=== PATIENT | male | born 1985 | race American Indian/Alaskan Native ===

== ENCOUNTER 2016-03-10 08:02 | Inpatient (IN) | payer SELFPAY ==
[2016-03-10] MEDS ORDERED: ATIVAN ONE (08:21)
[2016-03-10] MEDS ORDERED: KEPPRA 1,000 MG/NS 0.75% 100ML 100 ML IV ONE ×2 (08:24→08:35)
[2016-03-10] MEDS ORDERED: NACL 0.9% 1000 ML 1,000 ML IV ONE (08:33)
[2016-03-10] MEDS ORDERED: ATIVAN IV ONE ×2 (08:33→08:46)
[2016-03-10 09:16] LABS: Urine Drugs of Abuse Note Disclamer
[2016-03-10 09:25] LABS: Basophils % (Auto) 0.3 % (0.0-1.8); Mean Corpuscular HGB Conc 31 % (32-34); Mean Corpuscular Hemoglobin 27 pg (28-32); Mean Corpuscular Volume 87 fl (84-94); Platelet Count 195 K/mm3 (140-440); Red Blood Count 5.49 M/mm3 (3.65-5.03); White Blood Count 13.6 K/mm3 (4.5-11.0)
[2016-03-10 09:31] LABS: Hematocrit 47.8 % (35.5-45.6); Hemoglobin 14.8 gm/dl (11.8-15.2)
--- NOTE | 2016-03-10 09:38 | Cat Scan Report ---
CT HEAD WITHOUT CONTRAST: HISTORY: Seizure. Serial contiguous axial images were obtained through the cranium. Intravenous contrast material was not administered. The ventricles are normal in size and appearance. There is no mass effect or midline shift. No areas of abnormally increased or decreased attenuation are seen. No mass lesion is seen. The mastoid air cells and visualized portions of the sinuses are normal. IMPRESSION: Cranial CT scan within normal limits. No significant change since 10/18/15.
[2016-03-10 09:39] LABS: Bacteria,Urine 1+ /HPF (Negative); Bilirubin,Urine NEG (Negative); Blood,Urine SM (Negative); Ketones,Urine TR mg/dL (Negative); Leukocyte Esterase,Urine NEG (Negative); Mucus,Urine 1+ /HPF; Nitrite,Urine NEG (Negative); Urobilinogen,Urine < 2.0 mg/dL (<2.0); WBC,Urine < 1.0 /HPF (0.0-6.0)
[2016-03-10 09:46] LABS: Alanine Aminotransferase 23 units/L (7-56); Albumin 4.2 g/dL (3.9-5); Albumin/Globulin Ratio 1.1 %; Alkaline Phosphatase 87 units/L (35-129); Anion Gap 24 mmol/L; BUN/Creatinine Ratio 10.66; Bilirubin,Total 0.5 mg/dL (0.1-1.2); Blood Urea Nitrogen 16 mg/dL (9-20); Calcium 9.2 mg/dL (8.4-10.2); Carbon Dioxide 18 mmol/L (22-30); Glucose 105 mg/dL (75-100); Potassium 4.2 mmol/L (3.6-5.0); Sodium 140 mmol/L (137-145); Total Protein 8.1 g/dL (6.3-8.2)
[2016-03-10 09:59] LABS: Bilirubin,Direct < 0.2 mg/dL (0-0.2); Bilirubin,Indirect 0.3 mg/dL
--- NOTE | 2016-03-10 10:46 | XRay Report ---
AP CHEST: HISTORY: Difficulty in breathing There is poor inspiration AP view of the chest demonstrates a normal mediastinal and cardiac contour with clear lungs and normal bony and soft tissue structures. IMPRESSION: Negative expiratory AP chest.
--- NOTE | 2016-03-10 12:33 | History and Physical Report ---
History of Present Illness Date of examination: 03/10/16 History of present illness: This is a 30-year-old man who was diagnosed which seizure in September 2015, he was started on Keppra after is second seizure. He has not had workup for his seizure activity. Mom states that around 5:00 this morning she heard a loud thud in the house, she went to see what was wrong, she found the patient on the floor seizing, generalize tonic-clonic lasting for less than 5 minutes. EMS was called, patient did not want come to the hospital. 10 minutes later he had another seizure similar to the first, he was brought to the emergency room for further evaluation. For the last 1 week the patient has been taking his Keppra once a day instead of twice a day Patient denies chest pain, palpitation, shortness of breath, cough, abdominal pain, hematochezia, dysuria, frequency, focal weakness, dysarthria, fever chills , polydipsia polyuria, hot or cold intolerance, easy bruisability, or rash or bleeding from mucosal membrane, rhinorrhea, epistaxis, earache, tinnitus, blurry vision, eye discharge, anxiety, depression. Other review of systems negative PAST SURGICAL HISTORY: None SOCIAL HISTORY: Drinks alcohol, last drink was yesterday, he smokes 6 cigarettes a day, cocaine use FAMILY HISTORY: Hypertension Medications and Allergies Allergies Allergy/AdvReac Type Severity Reaction Status Date / Time No Known Allergies Allergy Unverified 07/13/15 14:23 Home Medications Medication Instructions Recorded Confirmed Last Taken Type levETIRAcetam [Keppra TAB] 500 mg PO BID 03/10/16 03/10/16 03/09/16 History Active Meds: Active Medications Levetiracetam (Keppra) 500 mg PO BID ROSI Exam - Physical Exam Narrative exam: Gen. appearance: Patient lying in bed, no apparent distress HEENT: Normocephalic, atraumatic, pupils equally round and reactive to light, extraocular movement intact, and no sclericterus,. No JVD or thyromegaly or nodule,neck supple, no carotid bruit ,mucous membranes moist, no exudate or erythema Heart: S1, S2, regular rate and rhythm Lungs: Clear to auscultation bilaterally, breathing comfortable Abdomen: Positive bowel sounds, nontender, nondistended, no organomegaly Extremity: No edema, cyanosis, clubbing Skin: No rash, nodules, warm, dry Neuro: Oriented 3, cranial nerves II-12 intact, speech is fluent, motor and sensory intact - Constitutional Vitals: Temp Pulse Resp BP Pulse Ox 98.2 F 106 H 24 163/91 99 03/10/16 08:35 03/10/16 08:35 03/10/16 08:39 03/10/16 08:35 03/10/16 08:39 Results - Labs CBC & Chem 7: 03/10/16 08:49 03/10/16 08:49 Labs: Abnormal lab results 03/10/16 03/10/16 03/10/16 Range/Units 08:42 08:49 08:49 WBC 13.6 H (4.5-11.0) K/mm3 RBC 5.49 H (3.65-5.03) M/mm3 Hct 47.8 H (35.5-45.6) % MCH 27 L (28-32) pg MCHC 31 L (32-34) % RDW 16.0 H (13.2-15.2) % Lymph % (Auto) 6.9 L (13.4-35.0) % Lymph # 0.9 L (1.2-5.4) K/mm3 [place] # 0.9 H (0.0-0.8) K/mm3 Seg Neutrophils % 86.0 H (40.0-70.0) % Seg Neutrophils # 11.7 H (1.8-7.7) K/mm3 Carbon Dioxide 18 L (22-30) mmol/L Glucose 105 H (75-100) mg/dL POC Glucose 110 H (70-105) Total Creatine Kinase (55-170) units/L Phenytoin (10.0-20.0) mg/L 03/10/16 03/10/16 Range/Units 08:49 08:49 WBC (4.5-11.0) K/mm3 RBC (3.65-5.03) M/mm3 Hct (35.5-45.6) % MCH (28-32) pg MCHC (32-34) % RDW (13.2-15.2) % Lymph % (Auto) (13.4-35.0) % Lymph # (1.2-5.4) K/mm3 [place] # (0.0-0.8) K/mm3 Seg Neutrophils % (40.0-70.0) % Seg Neutrophils # (1.8-7.7) K/mm3 Carbon Dioxide (22-30) mmol/L Glucose (75-100) mg/dL POC Glucose (70-105) Total Creatine Kinase 461 H (55-170) units/L Phenytoin 1.1 L (10.0-20.0) mg/L - Imaging and Cardiology Chest x-ray: report reviewed CT Scan - head: report reviewed Assessment and Plan Acute on chronic seizure Substance abuse Admits medicine Start IV Ativan as needed for seizure Restart Kejavierra, consult neurology Start DVT prophylaxis
--- NOTE | 2016-03-10 12:53 | Emergency Department Report ---
ED Seizure HPI - General Chief Complaint: Seizure Stated Complaint: SEIZURES Time Seen by Provider: 03/10/16 08:32 Source: EMS Mode of arrival: Stretcher Limitations: Altered Mental Status - History of Present Illness Initial Comments: Patient presents to this facility via EMS after 2 seizures at home. Nurse informs me that upon bed placement he had another generalized seizure. When I directly came into the room he was postictal. He was maintaining his blood pressure/saturation and pulse. IV Keppra was initiated. He became somewhat agitated and was given Ativan IV to facilitate his workup. Apparently the patient has a history of seizures. It is unknown what medicine he is supposed be taking although it is suggested that he is not compliant. Further information was available to me at that time. MD Complaint: seizure -: hour(s) Description of Episode: tonic-clonic movement Witnessed:: Yes Trauma: No (according to medics no injury) Seizure History: known seizure disorder Place: home Treatments Prior to Arrival: none - Related Data Home Medications Medication Instructions Recorded Confirmed Last Taken levETIRAcetam [Keppra TAB] 500 mg PO BID 03/10/16 03/10/16 03/09/16 Allergies Allergy/AdvReac Type Severity Reaction Status Date / Time No Known Allergies Allergy Unverified 07/13/15 14:23 ED Review of Systems ROS: Stated complaint: SEIZURES Other details as noted in HPI Comment: Unobtainable due to pts medical conditions ED Past Medical Hx - Past Medical History Hx Seizures: Yes - Social History Smoking Status: Current Some Day Smoker Substance Use Type: Alcohol, Cocaine - Medications Home Medications: Home Medications Medication Instructions Recorded Confirmed Last Taken Type levETIRAcetam [Keppra TAB] 500 mg PO BID 03/10/16 03/10/16 03/09/16 History ED Physical Exam - General Limitations: Altered Mental Status General appearance: other (postictal) - Head Head exam: Present: atraumatic - Eye Eye exam: Present: PERRL. Absent: scleral icterus - ENT ENT exam: Present: mucous membranes moist - Neck Neck exam: Present: normal inspection. Absent: tenderness, meningismus - Respiratory Respiratory exam: Present: normal lung sounds bilaterally. Absent: respiratory distress - Cardiovascular Cardiovascular Exam: Present: tachycardia. Absent: systolic murmur, diastolic murmur - GI/Abdominal GI/Abdominal exam: Present: soft, normal bowel sounds. Absent: distended, tenderness, guarding, rebound, rigid - Extremities Exam Extremities exam: Present: normal inspection - Neurological Exam Neurological exam: Present: altered, other (postictal limited exam no apparent focality response to sternal rub) - Psychiatric Psychiatric exam: Present: other - Skin Skin exam: Present: warm, dry, intact, normal color. Absent: rash ED Course Vital Signs 03/10/16 03/10/16 08:35 08:39 Temperature 98.2 F Pulse Rate 106 H Respiratory 24 24 Rate Blood Pressure 163/91 [Right] O2 Sat by Pulse 95 99 Oximetry - Reevaluation(s) Reevaluation #1: The patient returned from CT. He required a total of 2 mg of Ativan for sedation. He is still lethargic. He has been progressively improving per nursing staff. I spoke with the hospitalist certainly his need for admission. Apparently the patient was admitted by Dr. Santizo. 03/10/16 12:51 Reevaluation #2: Patient has Recovered from his postictal state. There are no clinical signs of aspiration or neurological compromise. He is admitted to the hospital service. 03/10/16 13:02 ED Medical Decision Making - Lab Data Result diagrams: 03/10/16 08:49 03/10/16 08:49 Laboratory Results - last 24 hr 03/10/16 03/10/16 03/10/16 08:42 08:49 08:49 WBC 13.6 H RBC 5.49 H Hgb 14.8 Hct 47.8 H MCV 87 MCH 27 L MCHC 31 L RDW 16.0 H Plt Count 195 Lymph % (Auto) 6.9 L [place] % (Auto) 6.8 Eos % (Auto) 0.0 Baso % (Auto) 0.3 Lymph # 0.9 L [place] # 0.9 H Eos # 0.0 Baso # 0.0 Seg Neutrophils % 86.0 H Seg Neutrophils # 11.7 H Sodium 140 Potassium 4.2 Chloride 102.0 Carbon Dioxide 18 L Anion Gap 24 BUN 16 Creatinine 1.5 Estimated GFR > 60 BUN/Creatinine Ratio 10.66 Glucose 105 H POC Glucose 110 H Calcium 9.2 Magnesium Total Bilirubin 0.5 Direct Bilirubin < 0.2 Indirect Bilirubin 0.3 AST 30 ALT 23 Alkaline Phosphatase 87 Total Creatine Kinase CK-MB (CK-2) CK-MB (CK-2) Rel Index Total Protein 8.1 Albumin 4.2 Albumin/Globulin Ratio 1.1 Urine Color Urine Turbidity Urine pH Ur Specific [place] Urine Protein Urine Glucose (UA) Urine Ketones Urine Blood Urine Nitrite Urine Bilirubin Urine Urobilinogen Ur Leukocyte Esterase Urine WBC (Auto) Urine RBC (Auto) U Epithel Cells (Auto) Urine Bacteria (Auto) Hyaline Casts Urine Mucus Urine Opiates Screen Urine Methadone Screen Ur Barbiturates Screen Phenytoin Ur Phencyclidine Scrn Ur Amphetamines Screen U Benzodiazepines Scrn Urine Cocaine Screen U Marijuana (THC) Screen Drugs of Abuse Note Plasma/Serum Alcohol 03/10/16 03/10/16 03/10/16 08:49 08:49 08:49 WBC RBC Hgb Hct MCV MCH MCHC RDW Plt Count Lymph % (Auto) [place] % (Auto) Eos % (Auto) Baso % (Auto) Lymph # [place] # Eos # Baso # Seg Neutrophils % Seg Neutrophils # Sodium Potassium Chloride Carbon Dioxide Anion Gap BUN Creatinine Estimated GFR BUN/Creatinine Ratio Glucose POC Glucose Calcium Magnesium Total Bilirubin Direct Bilirubin Indirect Bilirubin AST ALT Alkaline Phosphatase Total Creatine Kinase 461 H CK-MB (CK-2) 3.0 CK-MB (CK-2) Rel Index 0.6 Total Protein Albumin Albumin/Globulin Ratio Urine Color Urine Turbidity Urine pH Ur Specific [place] Urine Protein Urine Glucose (UA) Urine Ketones Urine Blood Urine Nitrite Urine Bilirubin Urine Urobilinogen Ur Leukocyte Esterase Urine WBC (Auto) Urine RBC (Auto) U Epithel Cells (Auto) Urine Bacteria (Auto) Hyaline Casts Urine Mucus Urine Opiates Screen Urine Methadone Screen Ur Barbiturates Screen Phenytoin 1.1 L Ur Phencyclidine Scrn Ur Amphetamines Screen U Benzodiazepines Scrn Urine Cocaine Screen U Marijuana (THC) Screen Drugs of Abuse Note Plasma/Serum Alcohol < 0.01 03/10/16 03/10/16 03/10/16 09:02 Unknown Unknown WBC RBC Hgb Hct MCV MCH MCHC RDW Plt Count Lymph % (Auto) [place] % (Auto) Eos % (Auto) Baso % (Auto) Lymph # [place] # Eos # Baso # Seg Neutrophils % Seg Neutrophils # Sodium Potassium Chloride Carbon Dioxide Anion Gap BUN Creatinine Estimated GFR BUN/Creatinine Ratio Glucose POC Glucose Calcium Magnesium 2.3 Total Bilirubin Direct Bilirubin Indirect Bilirubin AST ALT Alkaline Phosphatase Total Creatine Kinase CK-MB (CK-2) CK-MB (CK-2) Rel Index Total Protein Albumin Albumin/Globulin Ratio Urine Color Yellow Urine Turbidity Slightly-cloudy Urine pH 5.0 Ur Specific [place] 1.026 Urine Protein 100 mg/dl Urine Glucose (UA) Neg Urine Ketones Tr Urine Blood Sm Urine Nitrite Neg Urine Bilirubin Neg Urine Urobilinogen < 2.0 Ur Leukocyte Esterase Neg Urine WBC (Auto) < 1.0 Urine RBC (Auto) 5.0 U Epithel Cells (Auto) 1.0 Urine Bacteria (Auto) 1+ Hyaline Casts 5 Urine Mucus 1+ Urine Opiates Screen Presumptive negative Urine Methadone Screen Presumptive negative Ur Barbiturates Screen Presumptive negative Phenytoin Ur Phencyclidine Scrn Presumptive negative Ur Amphetamines Screen Presumptive positive U Benzodiazepines Scrn Presumptive negative Urine Cocaine Screen Presumptive positive U Marijuana (THC) Screen Presumptive negative Drugs of Abuse Note Disclamer Plasma/Serum Alcohol - EKG Data -: EKG Interpreted by Nd EKG shows normal: axis, intervals, QRS complexes, ST-T waves Rate: tachycardia - EKG Data Interpretation: other (sinus tachycardia without evidence of ischemia) - Radiology Data Radiology results: report reviewed Critical care attestation.: If time is entered above; I have spent that time in minutes in the direct care of this critically ill patient, excluding procedure time. ED Disposition Clinical Impression: Recurrent seizures, Cocaine abuse Disposition: OP ADMITTED IP TO THIS HOSP Is pt being admited?: Yes Does the pt Need Aspirin: No Condition: Stable Referrals: PRIMARY CARE, [Primary Care Provider] - 3-5 Days Time of Disposition: 12:55
[2016-03-10] MEDS ORDERED: ASPIRIN PO ONE (13:03)
[2016-03-10] MEDS ORDERED: TYLENOL PO PRN (13:11)
[2016-03-10] MEDS ORDERED: ATIVAN IV PRN (13:11)
[2016-03-10] MEDS ORDERED: ZOFRAN IV PRN (13:11)
[2016-03-10] MEDS ORDERED: MILK OF MAGNESIA PO PRN (13:11)
[2016-03-10] MEDS ORDERED: DULCOLAX PR PRN (13:11)
[2016-03-10] MEDS: KEPPRA PO SCH (21:24)
[2016-03-10] MEDS: PERCOCET 5/325 PO PRN (21:25)
[2016-03-11 06:01] LABS: Basophils % (Auto) 0.7 % (0.0-1.8); Eosinophils % (Auto) 0.3 % (0.0-4.3); Hematocrit 42.2 % (35.5-45.6); Hemoglobin 14.1 gm/dl (11.8-15.2); Mean Corpuscular HGB Conc 33 % (32-34); Mean Corpuscular Hemoglobin 28 pg (28-32); Mean Corpuscular Volume 84 fl (84-94); Platelet Count 187 K/mm3 (140-440); Red Blood Count 5.01 M/mm3 (3.65-5.03); Red Cell Distribution Width 15.4 % (13.2-15.2); White Blood Count 8.9 K/mm3 (4.5-11.0)
[2016-03-11 06:12] LABS: Blood Urea Nitrogen 9 mg/dL (9-20); Calcium 9.1 mg/dL (8.4-10.2); Carbon Dioxide 24 mmol/L (22-30); Chloride 101.2 mmol/L (98-107); Glucose 105 mg/dL (75-100); Sodium 137 mmol/L (137-145)
[2016-03-11 06:18] LABS: Anion Gap 16 mmol/L
[2016-03-11] MEDS: KEPPRA PO SCH ×2 (11:35→21:25)
[2016-03-11] MEDS: LOVENOX SUB-Q SCH (11:35)
[2016-03-11] MEDS: PERCOCET 5/325 PO PRN (11:36)
[2016-03-11] MEDS ORDERED: FLUARIX QUAD 2016-2017(36 MOS+) IM ONE (12:00)
[2016-03-11] MEDS ORDERED: PNEUMOVAX 23 IM ONE (12:00)
--- NOTE | 2016-03-11 14:27 | Discharge Summary ---
Providers - Providers Date of Admission: 03/10/16 13:11 Date of discharge: 03/11/16 Attending physician: PAULY SELLERS Primary care physician: SUPERVISOR YARD Hospitalization Condition: Stable Hospital course: Discharge Diagnosis: Breakthrough seizure Substance abuse Noncompliance with medication left shoulder pain Disposition: DISCHARGED TO HOME OR SELFCARE Time spent for discharge: 32 minutes Core Measure Documentation - Palliative Care Palliative Care/ Comfort Measures: Not Applicable - Core Measures Any of the following diagnoses?: none Exam - Constitutional Vitals: Temp Pulse Resp BP Pulse Ox 99.0 F 94 H 18 144/94 97 03/11/16 08:00 03/11/16 08:00 03/11/16 08:00 03/11/16 08:00 03/11/16 08:16 Plan Activity: advance as tolerated, no driving until cleared by PCP Weight Bearing Status: Weight Bear as Tolerated Diet: regular Follow up with: PRIMARY CAREMD [Primary Care Provider] - 3-5 Days
--- NOTE | 2016-03-12 07:16 | XRay Report ---
LEFT SHOULDER, 3 VIEWS: HISTORY: Pain, dislocation. FINDINGS: Compared to 08/27/15. Deformity of the medial left humeral head/neck junction is again noted. This appears to represent an ununited fracture fragment. It is best demonstrated on the internal rotational view. There is no evidence for acute fracture or dislocation. There are mild degenerative changes at the glenohumeral joint. AC joint is normal. 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 Consider further evaluation with CT or MRI.
[2016-03-12 08:38] VITALS: BP 122/81
[2016-03-12] MEDS: KEPPRA PO SCH ×2 (08:54→09:14)
[2016-03-12] MEDS: LOVENOX SUB-Q SCH (09:14)
--- NOTE | 2016-03-12 09:19 | Admit Criteria Form ---
Admission Criteria Documentation: SEIZURE Clinical Indications for Admission to Inpatient Care (Place 'X' for any and all applicable criteria): Admission is indicated for seizure and ANY ONE of the following(1)(2)(3)(4)(5): [X ]I. Inpatient admission required rather than observation care (Also use Seizure: Observation Care Criteria as appropriate) because of ANY ONE of the following: [ ]a) Altered mental status that is severe or persistent [ ]b) New focal neurologic deficit that is severe or persistent [ ]c) Metabolic disorder (eg, hypoglycemia, hyponatremia) that is severe or persistent [X ]d) Recurrent seizure [ ]e) Outpatient antiseizure regimen cannot be established (eg , patient cannot tolerate medication, initiation requires inpatient care) [ ]f) Need for ongoing intravenous infusion of antiseizure medication [ ]g) Cardiac arrhythmias of immediate concern [ ]h) Cerebral bleeding, hydrocephalus, or vasospasm monitoring (14) [ ]i) Increased intracranial pressure or cerebral edema monitoring (15) [ ]j) Other treatment or monitoring requiring inpatient admission [ ]II. Status epilepticus [A] or repetitive seizures not controlled with emergent treatment (6)(8) [ ]III. Brain disorder (eg, tumor, edema, and hydrocephalus) that requiring monitoring or intervention available only at inpatient level of care. [ ]IV. Brain insult (eg, severe trauma, stroke, drug toxicity, or withdrawal) that requires monitoring or intervention available only at inpatient level of care (10)(11) Extended stay beyond goal length of stay may be needed for (22) [ ]a) Complications of status epilepticus [ ]b) Refractory status epilepticus [ ]c) Etiology-specific therapy for conditions such as [employer] infection, head injury,eclampsia, severe metabolic abnormalities, and brain tumor [ ]d) Residual neurologic damage, [ ]e) Initiation of significant change to anticonvulsant treatment [ ]f) Older patients (65 years or older) [ ]g) Patient requiring intubation (eg, to protect airway) The original [facility] content created by [employer] has been revised. The portions of the content which have been revised are identified through the use of italic text or in bold, and [facility] has neither reviewed nor approved the modified material. All other unmodified content is copyright [facility]. Please see references footnoted in the original [facility] edition 2016 Admission Criteria Met: Yes
== END 2016-03-12 09:50 | disposition home or self-care (01) | DRG 101 ==
LOC: ED 08:02 → 3A 13:11
PROVIDERS: ADMIT Internal Medicine; ATTEND Internal Medicine
DX: G40.89 Other seizures (principal); F19.10 Other psychoactive substance abuse, uncomplicated; F17.210 Nicotine dependence, cigarettes, uncomplicated; F14.90 Cocaine use, unspecified, uncomplicated; M25.512 Pain in left shoulder; Z91.14 Patient's other noncompliance with medication regimen; Z82.49 Family history of ischemic heart disease and other diseases of the circulatory system
CPT/HCPCS: 36415; 70450; 71010; 80048; 80074; 80185; 80307; 80320; 81001; 82550; 82553; 82962; 83735; 85025; 90686; 90732; 93005; 93010; 96365; 96375; 96376; 99406; G0480; J1650; J1953; J2060; J7030